=== PATIENT | female | born 1995 | race Caucasian/White ===

== ENCOUNTER 2017-02-23 23:58 | Emergency (ER) | payer OTHER ==
--- NOTE | ~2017-02-23 | CR127 ---
[facility] A Service of [facility] & [facility] RADIOLOGY TEXT RESULTS PATIENT: ALIRIO CALVILLO LOCATION: SED : [birth year] UNIT #: [id number] AGE: [address]: Pj Chaudhyr SEX: F ORDER DR: [id number] [place] [id number] E MR#: [id number] Acc #: [id number] NAME: ALIRIO CALVILLO : 1995 SEX: F STUDY DATE/TIME: 02/24/2017 00:14 UNIT: SED ROOM: STUDY DESCRIPTION: CR Foot Complete Min 3 View Rt Attending Physician: Pj Chaudhry P.A.-C. Ordering Physician: Pj Chaudhry P.A.-C. MEDICAL IMAGING REPORT This report is preliminary unless electronic signature is present. EXAM Right foot, 02/24 at 00:14. INDICATIONS Big toe swelling and pain for 2 days. FINDINGS The tarsal, metatarsal, and phalangeal elements are all anatomically normal in position and alignment. There are no articular defects. No fractures or radiopaque foreign bodies in the soft tissues are apparent. IMPRESSION Normal foot. Dictated by... Sidney Edwards Jr., M.D. THIS IS AN ELECTRONICALLY VERIFIED REPORT Sidney Edwards Jr., M.D. at 02/24/2017 9:24 PM CATHERINE/teetee TD: 02/24/2017 09:20 JOB #: [id number] MEDICAL IMAGING REPORT Page 1 of 1
[~2017-02-23 23:58] MED LIST: NO MEDICATIONS
[2017-02-24 00:14] LABS: BASOPHIL% 0.5 % (0-2.5); EOSINOPHIL# 0.2 X10e3 (0-0.7); LYMPHOCYTE# 2.2 X10e3 (1.0-3.5); LYMPHOCYTE% 24.7 % (17.0-45.0); MEAN CELL VOLUME 84.1 FL (83-96); MEAN CORPUSCULAR HEMOGLOBIN 30.2 PG (28-34); MEAN CORPUSCULAR HGB CONC 35.8 g/dL (30-36); MEAN PLATELET VOLUME 9.3 FL (6.5-11.5); MONOCYTE# 0.7 X10e3 (0-1.0); MONOCYTE% 8.3 % (3.0-12.0); NEUTROPHIL# 5.6 X10e3 (1.5-7.1); NEUTROPHIL% 64.5 % (40-75); PLATELET COUNT 308 X10e3 (140-420); RED BLOOD COUNT 4.64 X10e (3.90-5.30); RED CELL DISTRIBUTION WIDTH 12.7 % (11.0-15.5); WHITE BLOOD COUNT 8.7 X10e3 (4.0-10.5)
[2017-02-24 00:15] LABS: DIFF IND NO
[2017-02-24 00:33] LABS: ALBUMIN SERUM 4.4 g/dL (3.5-5.0); BILIRUBIN, DIRECT 0.2 mg/dL (0.0-0.2); BILIRUBIN,INDIRECT 0.8 mg/dL (0.0-0.9); BUN/CREATININE RATIO 18.33; CALCIUM SERUM 9.1 mg/dL (8.4-10.2); CREATININE SERUM 0.6 mg/dL (0.6-1.4); GLOM FILT RATE Estimated 131.2 mL/min (>60); POTASSIUM 3.7 mmol/L (3.5-5.1); PROTEIN TOTAL SERUM 7.7 g/dL (6.0-8.3); URIC ACID 4.4 mg/dL (2.6-7.2)
== END 2017-02-24 01:10 | disposition home or self-care (01) ==
LOC: SED 23:58
PROVIDERS: Physician Assistant
DX: M79.674 Pain in right toe(s) (principal)
CPT/HCPCS: 36415; 73630; 80048; 80076; 84550; 85025; 99283